=== PATIENT | female | born 1990 | race African-American/Black ===

== ENCOUNTER 2016-07-22 10:05 | Emergency (ER) | payer OTHER ==
[~2016-07-22] VITALS: Ht 162.6 cm; Wt 63.5 kg
[~2016-07-22 10:05] MED LIST: IBUPROFEN600 MG PO
[2016-07-22 10:12] VITALS: BP 123/81
[2016-07-22] MEDS ORDERED: NKM (10:12)
[2016-07-22 10:40] VITALS: BP 123/81
--- NOTE | 2016-07-22 19:31 | Emergency Room Report ---
History of Present Illness General Chief Complaint: Eye Problems Source: Patient Present Illness HPI Patient apparently splashed super glue into eye. She had pain there. It is apparently better now and she can see clearly. 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 Called patient and left message. No answer. Last Vital Signs Date Time Temp Pulse Resp B/P Pulse Ox O2 Delivery O2 Flow Rate FiO2 07/22/16 10:40 98.2 77 14 123/81 100 Room Air Disposition: ELOPED Condition: Stable Referrals: [facility],REFERRING (PCP) Grupo Pantoja M.D. Jul 22, 2016 19:31
== END 2016-07-22 10:40 | disposition left against medical advice (07) ==
LOC: EMR 10:37
DX: H57.9 Unspecified disorder of eye and adnexa (principal)
CPT/HCPCS: 99281

== ENCOUNTER 2016-10-04 14:02 | Emergency (ER) | payer OTHER ==
[~2016-10-04] VITALS: Ht 162.6 cm; Wt 54.4 kg
[~2016-10-04 14:02] MED LIST changes: +NKM
[2016-10-04 14:45] VITALS: BP 111/71
[2016-10-04 15:14] VITALS: BP 111/71
[2016-10-04] MEDS ORDERED: FLONASE ALLERG9.9 ML NS (15:22)
[2016-10-04] MEDS ORDERED: LORATADINE10 M2 PO (15:22)
--- NOTE | 2016-10-04 15:22 | Emergency Room Report ---
History of Present Illness General Chief Complaint: Headache Source: Patient Present Illness HPI Patient is here complains of flulike symptoms for 1 days. Patient is accompanied by 4 family members with similar symptoms. Associated symptoms include diarrhea, fatigue, and frontal sinus pressure with nasal congestion. Not taking any medications currently. Denies any current fever, abd pain, body aches, chills, cough, sore throat, back pain, neck pain, photophobia, phonophobia, CP, SOB or headache. 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 Review of Systems All Other Systems: negative except mentioned in HPI Physical Exam Vital Signs Date Time Temp Pulse Resp B/P Pulse Ox O2 Delivery O2 Flow Rate FiO2 10/04/16 14:35 98.1 78 16 111/71 98 Sp02 EP Interpretation: reviewed, normal General Appearance: no apparent distress, alert, GCS 15, non-toxic Head: normocephalic, atraumatic Eyes: bilateral eye PERRL, bilateral eye normal inspection ENT: hearing grossly normal, normal pharynx, no angioedema, normal voice, TMs + canals normal, uvula midline Neck: full range of motion, supple/symm/no masses Respiratory: chest non-tender, lungs clear, normal breath sounds, speaking full sentences Cardiovascular #1: regular rate, rhythm, no edema Musculoskeletal: normal inspection Neurologic: alert, oriented x3, normal gait Psychiatric: judgement/insight normal, memory normal, mood/affect normal, no suicidal/homicidal ideation Skin: normal color, no rash, warm/dry, well hydrated Lymphatic: no adenopathy Medical Decision Making PA Attestation Dr. Patel is my supervising physician with whom patient management has been discussed with. Diagnostic Impression: Primary Impression: URI with cough and congestion ER Course Pt. presents to the ED c/o of flu-like sxs Ddx considered but are not limited to bronchitis, pneumonia, viral upper respiratory tract infection, gastroenteritis, viral syndrome Vital signs: are WNL, pt. is afebrile H&PE are most consistent with viral syndrome ORDERS: none required at this time, the diagnosis is clinical ED INTERVENTIONS: None required at this time. DISCHARGE: At this time pt. is stable for d/c to home. Will provide printed patient care instructions, and any necessary prescriptions. Care plan and follow up instructions have been discussed with the patient prior to discharge. Last Vital Signs Date Time Temp Pulse Resp B/P Pulse Ox O2 Delivery O2 Flow Rate FiO2 10/04/16 15:14 98.1 16 111/71 98 10/04/16 14:35 78 Disposition: HOME, SELF-CARE Condition: Stable Scripts Loratadine (LORATADINE) 10 Mg Tablet 10 MG PO DAILY for 14 Days, #14 TAB Prov: PETERSON FONG P.A. 10/04/16 Fluticasone Propionate (Flonase Allergy Relief) 9.9 Ml [place].susp 2 SPRAYS NS DAILY for 7 Days, #10 ML Prov: PETERSON FONG.A. 10/04/16 Referrals: [facility],REFERRING (PCP) Patient Instructions: Sinus Headache, Upper Respiratory Infection, Adult Additional Instructions: Take medication as directed. Advised patient to use salt water gargle PRN. Advised patient to use chloraseptic as needed for throat pain in addition to APAP Q4H. Patient advised they can take Ibuprofen and Tylenol Q6H together for fever control as well. Educated patient on rhinitis and encouraged patient to use OTC nasal decongestants, nasal irrigation / saline sprays, and avoidance of possible triggers that can cause nasal irritation. Educated patient on the benefits of the various OTC medications available (ie. H1 blockers, decongestants, nasal steroids, etc.). If sxs worsen or don't improve, please return sooner. Go to the ER if you develop SOB, CP, Rash, photophobia, neck pain , throat swelling occur, go to the ER immediately. PETERSON FONG Oct 04, 2016 15:22
== END 2016-10-04 15:32 | disposition home or self-care (01) ==
LOC: EMR 14:51
DX: J06.9 Acute upper respiratory infection, unspecified (principal)
CPT/HCPCS: 99284

== ENCOUNTER 2018-01-10 10:08 | Emergency (ER) | payer MEDICAID, OTHER ==
[~2018-01-10] VITALS: Ht 162.6 cm; Wt 65.8 kg
[~2018-01-10 10:08] MED LIST changes: +FLONASE ALLERG9.9 ML NS; +LORATADINE10 M2 PO
--- NOTE | 2018-01-10 10:29 | Emergency Room Report ---
History of Present Illness General Chief Complaint: Abdominal Pain Source: Patient, Family Member Present Illness HPI Patient presents with complaints of nausea vomiting Also developed diarrhea Patient reports that she's had chills and sweats overnight Denies and does not recall any unusual food intake Denies any chest pain or shortness of breath denies any back or flank pain she had some mild cramping in the epigastric area Denies any neck pain or photophobia Denies any recent travel Allergies: Coded Allergies: No Known Allergies (Unverified , 02/13/13) Patient History Past Medical History: see triage record Pertinent Family History: none Last Menstrual Period: 12/09/2017 Now: No : 6 Para: 2 Reviewed Nursing Documentation: PMH: Agreed; PSxH: Agreed Nursing Documentation-PMH Hx Gastrointestinal Problems: No - 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 Review of Systems All Other Systems: negative except mentioned in HPI Physical Exam Vital Signs Date Time Temp Pulse Resp B/P (MAP) Pulse Ox O2 Delivery O2 Flow Rate FiO2 01/10/18 10:12 98.5 84 15 116/59 99 Room Air 98.4 Sp02 EP Interpretation: reviewed, normal General Appearance: well appearing, no apparent distress Head: normocephalic, atraumatic Eyes: bilateral eye PERRL, bilateral eye EOMI ENT: hearing grossly normal, normal pharynx, TMs + canals normal, uvula midline Neck: full range of motion, supple, no meningismus, no bony tend Respiratory: lungs clear, normal breath sounds, no rhonchi, no respiratory distress, no retraction, no accessory muscle use Cardiovascular #1: normal peripheral pulses, regular rate, rhythm, no edema, no gallop, no JVD, no murmur Gastrointestinal: normal bowel sounds, non tender, soft, no mass, no organomegaly, non-distended, no guarding, no hernia, no pulsatile mass, no rebound Genitourinary: no CVA tenderness Musculoskeletal: normal inspection Neurologic: oriented x3, responsive, truck driver heavy III-XII nml as tested, motor strength/ tone normal, sensory intact Psychiatric: mood/affect normal Skin: normal color, no rash, warm/dry, palpation normal Lymphatic: normal inspection, no adenopathy Medical Decision Making Diagnostic Impression: Primary Impression: Vomiting Additional Impression: Diarrhea ER Course With the patient's history and examination, multiple differentials considered, including but not limited to , ectopic , ovarian torsion, gastritis, cholecystitis, pancreatitis, appendicitis Patient had extensive blood work initiated Was given anti-emetic and pain medication has done significantly better Blood work all at baseline levels repeat exam reveals a soft lower abdomen And patient at this time is stable for close outpatient follow-up Labs Test 01/10/18 10:39 White Blood Count 8.4 K/UL (4.8-10.8) Red Blood Count 4.76 M/UL (4.20-5.40) Hemoglobin 14.4 G/DL (12.0-16.0) Hematocrit 43.6 % (37.0-47.0) Mean Corpuscular Volume 92 FL (80-99) Mean Corpuscular Hemoglobin 30.3 PG (27.0-31.0) Mean Corpuscular Hemoglobin Concent 33.0 G/DL (32.0-36.0) Red Cell Distribution Width 11.1 % (11.6-14.8) Platelet Count 196 K/UL (150-450) Mean Platelet Volume 8.1 FL (6.5-10.1) Neutrophils (%) (Auto) % (45.0-75.0) Lymphocytes (%) (Auto) % (20.0-45.0) Monocytes (%) (Auto) % (1.0-10.0) Eosinophils (%) (Auto) % (0.0-3.0) Basophils (%) (Auto) % (0.0-2.0) Differential Total Cells Counted 100 Neutrophils % (Manual) 79 % (45-75) Lymphocytes % (Manual) 7 % (20-45) Monocytes % (Manual) 3 % (1-10) Eosinophils % (Manual) 0 % (0-3) Basophils % (Manual) 1 % (0-2) Band Neutrophils 10 % (0-8) Platelet Estimate Adequate Platelet Morphology Normal Red Blood Cell Morphology Normal Urine HCG, Qualitative Negative (NEGATIVE) Sodium Level 137 MMOL/L (136-145) Potassium Level 3.7 MMOL/L (3.5-5.1) Chloride Level 105 MMOL/L (98-107) Carbon Dioxide Level 26 MMOL/L (21-32) Anion Gap 6 mmol/L (5-15) Blood Urea Nitrogen 12 mg/dL (7-18) Creatinine 1.0 MG/DL (0.55-1.30) Estimat Glomerular Filtration Rate > 60 mL/min (>60) Glucose Level 96 MG/DL (74-106) Calcium Level 9.0 MG/DL (8.5-10.1) Total Bilirubin 0.5 MG/DL (0.2-1.0) Aspartate Amino Transf (AST/SGOT) 18 U/L (15-37) Alanine Aminotransferase (ALT/SGPT) 17 U/L (12-78) Alkaline Phosphatase 53 U/L (46-116) Total Protein 8.3 G/DL (6.4-8.2) Albumin 4.0 G/DL (3.4-5.0) Globulin 4.3 g/dL Albumin/Globulin Ratio 0.9 (1.0-2.7) Lipase 198 U/L (73-393) Last Vital Signs Date Time Temp Pulse Resp B/P (MAP) Pulse Ox O2 Delivery O2 Flow Rate FiO2 01/10/18 10:12 98.5 84 15 116/59 99 Room Air 98.4 Status: improved Disposition: HOME, SELF-CARE Condition: Improved Scripts Mag Hydrox/Al Hydrox/Simeth (MAALOX MAXIMUM STRENGTH SUSP) 355 Ml [place].susp 10 ML PO Q12HR for 7 Days, ML Prov: Oniel Lynn DO 01/10/18 Famotidine (PEPCID AC) 20 Mg Tablet 20 MG PO DAILY, #20 TAB Prov: Oniel Lynn DO 01/10/18 Additional Instructions: Patient is provided with the discharge instructions notified to follow up with primary doctor in the next 2-3 days otherwise return to the er with any worsening symptoms. Please note that this report is being documented using [employer] technology. This can lead to erroneous entry secondary to incorrect interpretation by the dictating instrument. Oniel Lynn DO Jan 10, 2018 10:29
[2018-01-10 10:46] VITALS: BP 111/62
[2018-01-10 10:51] LABS: HEMATOCRIT 43.6 % (37.0-47.0); HEMOGLOBIN 14.4 G/DL (12.0-16.0); MEAN CORPUSCULAR VOLUME 92 FL (80-99); PLATELET COUNT 196 K/UL (150-450); RED BLOOD COUNT 4.76 M/UL (4.20-5.40); RED CELL DISTRIBUTION WIDTH 11.1 % (11.6-14.8); WHITE BLOOD COUNT 8.4 K/UL (4.8-10.8)
[2018-01-10 11:06] LABS: ANION GAP 6 mmol/L (5-15); BLOOD UREA NITROGEN 12 mg/dL (7-18); CARBON DIOXIDE 26 MMOL/L (21-32); CHLORIDE 105 MMOL/L (98-107); POTASSIUM 3.7 MMOL/L (3.5-5.1); SODIUM 137 MMOL/L (136-145)
[2018-01-10 11:07] LABS: ALANINE AMINOTRANSFERASE 17 U/L (12-78); ALBUMIN/GLOBULIN RATIO 0.9 (1.0-2.7); ALKALINE PHOSPHATASE 53 U/L (46-116); ASPARTATE AMINO TRANSFERASE 18 U/L (15-37); BILIRUBIN,TOTAL 0.5 MG/DL (0.2-1.0)
[2018-01-10] MEDS ORDERED: Metoclopramide 10mg/2ml Inj IVP ONE (11:15)
[2018-01-10] MEDS ORDERED: Morphine Sulfate 4mg/ml Inj IVP ONE (11:15)
[2018-01-10] MEDS ORDERED: PEPCID AC20 M2 PO (11:50)
[2018-01-10] MEDS ORDERED: MAALOX MAXIMUM355 M1 PO (11:50)
[2018-01-10 12:01] VITALS: BP 111/62
== END 2018-01-10 12:01 | disposition home or self-care (01) ==
LOC: EMR 10:28
DX: R11.2 Nausea with vomiting, unspecified (principal); R19.7 Diarrhea, unspecified
CPT/HCPCS: 36415; 80053; 81025; 83690; 85007; 85025; 96360; 96374; 96375; 99284; J2270; J2405; J2765

== ENCOUNTER 2019-05-02 07:42 | Emergency (ER) | payer MEDICAID ==
[~2019-05-02] VITALS: Ht 160 cm; Wt 80.7 kg
[~2019-05-02 07:42] MED LIST changes: +MAALOX MAXIMUM355 M1 PO; +PEPCID AC20 M2 PO
[2019-05-02] MEDS ORDERED: Acetaminophen 500mg (ES) tab ORAL ONE (08:15)
--- NOTE | 2019-05-02 08:20 | NUR ---
ED Nurse Note:pt. came with stiffness pain in her neck, was given pain meds
[2019-05-02] MEDS ORDERED: LIDODERM700 M1 TOPIC (08:21)
[2019-05-02] MEDS ORDERED: NAPROXEN250 MG ORAL (08:21)
--- NOTE | 2019-05-02 08:21 | Emergency Room Report ---
History of Present Illness General Chief Complaint: Pain Source: Patient Present Illness HPI 28-year-old female presents with left-sided neck pain after playing with her cousin, they were practicing self-defense moves, her pain is aching nature aggravated with movement alleviated with rest, no midline tenderness per patient no nausea no vomiting no chest pain or shortness of breath, patient presents for evaluation Allergies: Coded Allergies: No Known Allergies (Unverified , 02/13/13) Patient History Past Medical History: see triage record Last Menstrual Period: 04/24/2019 Now: No Reviewed Nursing Documentation: PMH: Agreed; PSxH: Agreed Nursing Documentation-PMH Past Medical History: No Stated History Hx Gastrointestinal Problems: No - 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 Review of Systems All Other Systems: negative except mentioned in HPI Physical Exam Vital Signs Date Time Temp Pulse Resp B/P (MAP) Pulse Ox O2 Delivery O2 Flow Rate FiO2 05/02/19 07:54 97.5 89 16 114/73 (87) 100 Room Air General Appearance: well appearing, no apparent distress Head: normocephalic, atraumatic ENT: hearing grossly normal, normal voice Neck: full range of motion, supple, no bony tend, tender lateral - Left side tenderness to palpation Respiratory: no respiratory distress, speaking full sentences Cardiovascular #1: regular rate, rhythm, no murmur, no rub Neurologic: alert, normal gait Psychiatric: mood/affect normal Skin: no rash Medical Decision Making Diagnostic Impression: Primary Impression: Neck muscle strain Qualified Codes: S16.1XXA - Strain of muscle, fascia and tendon at neck level , initial encounter ER Course 28-year-old female presents with left-sided muscle strain. supportive care disposition home with return precautions, low suspicion for fracture, low suspicion for ligament disruption. Last Vital Signs Date Time Temp Pulse Resp B/P (MAP) Pulse Ox O2 Delivery O2 Flow Rate FiO2 05/02/19 07:54 97.5 89 16 114/73 (87) 100 Room Air Disposition: HOME, SELF-CARE Condition: Stable Scripts Lidocaine Patch* (Lidoderm Patch*) 1 Each Adh..patch 1 PATCH TOPIC DAILY PRN for For Pain, #7 PATCH 0 Refills Patch(es) may remain in place for up to 12 hours in any 24-hour period. Prov: Timi Gamez MD 05/02/19 Naproxen* (NAPROSYN*) 250 Mg Tablet 250 MG ORAL BID PRN for For Pain, #20 TAB 0 Refills Prov: Timi Gamez MD 05/02/19 Referrals: NON PHYSICIAN (PCP) [facility]. [facility] Patient Instructions: Muscle Strain, [id number] Additional Instructions: The patient was provided with discharge instructions, notified to follow-up with a primary care doctor and or specialist in the next 24-48 hours, and to return to the ED if they have worsening of their symptoms. Please note that this report is being documented using [employer]AG[employer] technology. This can lead to erroneous entry secondary to incorrect interpretation by the dictating instrument. Timi Gamez MD May 02, 2019 08:21
[2019-05-02] MEDS ORDERED: Dexamethasone 4mg/ml vial IVP ONE (08:30)
[2019-05-02] MEDS ORDERED: Ketorolac 30mg Inj IM ONE (08:30)
--- NOTE | 2019-05-02 08:35 | NUR ---
ER DISCHARGE NOTE: Patient is cleared to be discharged per ERMD, pt is aox4, on room air, with stable vital signs. pt was given dc and prescription instructions, pt was able to verbalize understanding, pt is able to ambulate with steady gait. pt took all belongings.
[2019-05-02 08:36] VITALS: BP 114/73
[2019-05-02 08:38] VITALS: BP 114/73
== END 2019-05-02 08:45 | disposition home or self-care (01) ==
LOC: EMR 08:00
DX: S16.1XXA Strain of muscle, fascia and tendon at neck level, initial encounter (principal); X58.XXXA Exposure to other specified factors, initial encounter; Y93.89 Activity, other specified; Y92.9 Unspecified place or not applicable
CPT/HCPCS: 81025; 96372; 96374; J1100; J1885; Z7502; 99284

== ENCOUNTER 2020-07-05 12:58 | Emergency (ER) | payer MEDICAID ==
[~2020-07-05] VITALS: Ht 162.6 cm; Wt 70.8 kg
[~2020-07-05 12:58] MED LIST changes: +LIDODERM700 M1 TOPIC; +NAPROXEN250 MG ORAL
[2020-07-05 13:24] LABS: APPEARANCE,URINE SLIGHTLY CLOUDY; BILIRUBIN, URINE NEGATIVE (NEGATIVE); GLUCOSE, URINE (UA) NEGATIVE (NEGATIVE); KETONES,URINE 1+ (NEGATIVE); LEUKOCYTE ESTERASE ,URINE 1+ (NEGATIVE); NITRITE,URINE NEGATIVE (NEGATIVE); PH,URINE 5 (4.5-8.0); PROTEIN,URINE 2+ (NEGATIVE); UROBILINOGEN,URINE NORMAL MG/DL (0.0-1.0)
[2020-07-05 13:26] LABS: COLOR,URINE YELLOW
[2020-07-05 14:47] LABS: BASOPHILS % (AUTO) 1.1 % (0.0-2.0); EOSINOPHILS % (AUTO) 0.8 % (0.0-3.0); HEMATOCRIT 35.2 % (37.0-47.0); LYMPHOCYTES % (AUTO) 21.8 % (20.0-45.0); MEAN CORPUSCULAR VOLUME 91 FL (80-99); MONOCYTES % (AUTO) 5.6 % (1.0-10.0); NEUTROPHILS % (AUTO) 70.9 % (45.0-75.0); PLATELET COUNT 187 K/UL (150-450); RED BLOOD COUNT 3.89 M/UL (4.20-5.40); RED CELL DISTRIBUTION WIDTH 12.3 % (11.6-14.8); WHITE BLOOD COUNT 7.7 K/UL (4.8-10.8)
[2020-07-05 14:48] LABS: ANION GAP 7 mmol/L (5-15); BLOOD UREA NITROGEN 9 mg/dL (7-18); CALCIUM 8.6 MG/DL (8.5-10.1); CARBON DIOXIDE 26 MMOL/L (21-32); CHLORIDE 102 MMOL/L (98-107); CREATININE 0.7 MG/DL (0.55-1.30); POTASSIUM 3.9 MMOL/L (3.5-5.1); SODIUM 135 MMOL/L (136-145)
[2020-07-05 14:52] LABS: ALANINE AMINOTRANSFERASE 19 U/L (12-78); ALBUMIN 3.6 G/DL (3.4-5.0); ALBUMIN/GLOBULIN RATIO 0.9 (1.0-2.7); ALKALINE PHOSPHATASE 44 U/L (46-116); ASPARTATE AMINO TRANSFERASE 14 U/L (15-37); BILIRUBIN,TOTAL 0.2 MG/DL (0.2-1.0)
--- NOTE | 2020-07-05 15:24 | Diagnostic Imaging Report ---
Indication: Pelvic pain, bleeding, 10 weeks Technique: Transabdominal and transvaginal images of the pelvis. Doppler interrogation of the ovaries Comparison: 01/21/2010 Findings: Uterus measures 9.5 x 7.6 cm. Within the endometrium, there is a gestational sac. This demonstrates a pole with a crown-rump length of 2.9 cm, corresponding to an estimated gestational age of 9 weeks 2 days. There is positive heart activity, heart rate 179 bpm. There is a small subchorionic hemorrhage 1.9 x 0.8 cm. No definite myometrial abnormality. The left ovary demonstrates normal size, configuration, and Doppler signal. The right ovary cannot be visualized on either transabdominal or transvaginal images. There is a small amount of free cul-de-sac fluid. Impression: 9 week 2 day, by crown-rump length measurement, single live intrauterine Small subchorionic hemorrhage
--- NOTE | 2020-07-05 15:37 | Emergency Room Report ---
History of Present Illness General Chief Complaint: Complications Source: Patient Present Illness HPI The patient presents with a history of vaginal bleed with back pain last night. She is 10 weeks . She denies passing any tissue. The pain is resolved at this time. She did not take any medication for the pain. She denies any dysuria. She denies nausea, vomiting or diarrhea. She denies dysuria. The patient takes bites. The patient does not know what her blood type is. The patient Denies exposure to Covid positive contacts. 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 Review of Systems Constitutional: Denies: fever Cardiovascular: Denies: chest pain Gastrointestinal: Reports: see HPI Genitourinary: Reports: see HPI Musculoskeletal: Reports: see HPI Skin: Denies: rash Hematologic/Lymphatic: Reports: see HPI Physical Exam Vital Signs Date Time Temp Pulse Resp B/P (MAP) Pulse Ox O2 Delivery O2 Flow Rate FiO2 07/05/20 13:07 98.8 91 15 116/71 (86) 99 Room Air Sp02 EP Interpretation: reviewed, normal General Appearance: well appearing, no apparent distress, GCS 15, non-toxic Head: normocephalic Eyes: bilateral eye normal inspection, bilateral eye PERRL, bilateral eye EOMI ENT: other - Right mask Neck: supple Respiratory: lungs clear, normal breath sounds Cardiovascular #1: regular rate, rhythm Cardiovascular #2: 2+ radial (R) Gastrointestinal: normal inspection, normal bowel sounds, non tender, no mass, non-distended Genitourinary: no CVA tenderness, deferred - For ultrasound. No bleeding reported Musculoskeletal: back normal, normal range of motion, gait/station normal Neurologic: alert, oriented x3, grossly normal Psychiatric: mood/affect normal Skin: no rash, warm/dry Medical Decision Making Diagnostic Impression: Primary Impression: Threatened miscarriage Additional Impression: UTI (urinary tract infection) Qualified Codes: N30.00 - Acute cystitis without hematuria ER Course The patient reports being 10 weeks presenting with vaginal bleeding and lower abdominal pain that has resolved. Differential includes urinary tract infection, threatened miscarriage, miscarriage, ectopic amongst others. Patient evaluated with labs and ultrasound. Patient treated with IV hydration. White count normal. Hematocrit normal. CMP normal. Quantitative hCG 43 891. There is some pyuria. Blood type a positive. Ultrasound with normal intrauterine with good heart rate . Minimal subchorionic hemorrhages. Macrobid given for possibility of urinary tract infection. Patient remains pain-free. Discussed results with patient. Discussed the need for outpatient follow-up. Patient stable for outpatient observation and treatment. Laboratory Tests Test 07/05/20 13:15 07/05/20 13:40 Urine Color Yellow Urine Appearance Slightly cloudy Urine pH 5 (4.5-8.0) Urine Specific [place] 1.025 (1.005-1.035) Urine Protein 2+ (NEGATIVE) H Urine Glucose (UA) Negative (NEGATIVE) Urine Ketones 1+ (NEGATIVE) H Urine Blood 5+ (NEGATIVE) H Urine Nitrite Negative (NEGATIVE) Urine Bilirubin Negative (NEGATIVE) Urine Urobilinogen Normal MG/DL (0.0-1.0) Urine Leukocyte Esterase 1+ (NEGATIVE) H Urine RBC 20-30 /HPF (0 - 2) H Urine WBC 5-10 /HPF (0 - 2) H Urine Squamous Epithelial Cells Many /LPF (NONE/OCC) H Urine Bacteria Moderate /HPF (NONE) H White Blood Count 7.7 K/UL (4.8-10.8) Red Blood Count 3.89 M/UL (4.20-5.40) L Hemoglobin 12.0 G/DL (12.0-16.0) Hematocrit 35.2 % (37.0-47.0) L Mean Corpuscular Volume 91 FL (80-99) Mean Corpuscular Hemoglobin 30.9 PG (27.0-31.0) Mean Corpuscular Hemoglobin Concent 34.1 G/DL (32.0-36.0) Red Cell Distribution Width 12.3 % (11.6-14.8) Platelet Count 187 K/UL (150-450) Mean Platelet Volume 9.5 FL (6.5-10.1) Neutrophils (%) (Auto) 70.9 % (45.0-75.0) Lymphocytes (%) (Auto) 21.8 % (20.0-45.0) Monocytes (%) (Auto) 5.6 % (1.0-10.0) Eosinophils (%) (Auto) 0.8 % (0.0-3.0) Basophils (%) (Auto) 1.1 % (0.0-2.0) Sodium Level 135 MMOL/L (136-145) L Potassium Level 3.9 MMOL/L (3.5-5.1) Chloride Level 102 MMOL/L (98-107) Carbon Dioxide Level 26 MMOL/L (21-32) Anion Gap 7 mmol/L (5-15) Blood Urea Nitrogen 9 mg/dL (7-18) Creatinine 0.7 MG/DL (0.55-1.30) Estimated Glomerular Filtration Rate > 60 mL/min (>60) Glucose Level 93 MG/DL (74-106) Calcium Level 8.6 MG/DL (8.5-10.1) Total Bilirubin 0.2 MG/DL (0.2-1.0) Aspartate Amino Transferase (AST) 14 U/L (15-37) L Alanine Aminotransferase (ALT) 19 U/L (12-78) Alkaline Phosphatase 44 U/L (46-116) L Total Protein 7.7 G/DL (6.4-8.2) Albumin 3.6 G/DL (3.4-5.0) Globulin 4.1 g/dL Albumin/Globulin Ratio 0.9 (1.0-2.7) L Lipase 169 U/L (73-393) Human Chorionic Gonadotropin, Quant 68759 mIU/mL (1-6) H CT/MRI/US Diagnostic Results CT/MRI/US Diagnostic Results : Imaging Test Ordered: Pelvic ultrasound Impression Impression: 9 week 2 day, by crown-rump length measurement, single live intrauterine Small subchorionic hemorrhage Last Vital Signs Date Time Temp Pulse Resp B/P (MAP) Pulse Ox O2 Delivery O2 Flow Rate FiO2 07/05/20 15:40 97.6 65 14 112/80 99 Room Air Status: improved Disposition: HOME, SELF-CARE Condition: Improved Scripts Nitrofurantoin Monohyd/M-Cryst* (MACROBID 100 MG*) 100 Mg Capsule 100 MG ORAL EVERY 12 HOURS, #14 CAP Prov: Grupo Pantoja MD 07/05/20 Acetaminophen (Tylenol) 325 Mg Tablet 650 MG ORAL Q6H PRN for Prn Pain/Headache/Temp > 101, #30 TAB 0 Refills Prov: Grupo Pantoja MD 07/05/20 Referrals: [facility],REFERRING (PCP) Grupo Pantoja MD Jul 05, 2020 15:37
[2020-07-05] MEDS ORDERED: NITROFURANTOIN100 M2 ORAL (15:38)
[2020-07-05] MEDS ORDERED: TYLENOL325 MG ORAL (15:38)
[2020-07-05 15:40] VITALS: BP 112/80
== END 2020-07-05 15:40 | disposition home or self-care (01) ==
LOC: EMR 13:30
DX: O20.0 Threatened abortion (principal); O23.41 Unspecified infection of urinary tract in pregnancy, first trimester; Z3A.09 9 weeks gestation of pregnancy
CPT/HCPCS: 36415; 76801; 76817; 80053; 81003; 83690; 84702; 85025; 86850; 86900; 86901; 87086; 87181; 96360; J7030; Z7502; 99284